=== PATIENT | female | born 1955 | race Caucasian/White ===

== ENCOUNTER 2021-11-06 16:31 | Inpatient (IN) ==
[2021-11-06 18:21] LABS: Basophils # 0.1 K/mcL (0.0-0.2); Basophils % 0.9 %; Eosinophils # 0.2 K/mcL (0.0-0.6); Eosinophils % 1.2 %; Hematocrit 43.5 % (35.3-44.9); Hemoglobin 13.9 g/dL (11.5-15.4); Immature Granulocytes % 0.5 % (0-4); Lymphocytes # 4.5 K/mcL (0.6-4.6); Lymphocytes % 34.7 %; Mean Corpuscular Hemoglobin 28.8 pg (28.0-33.3); Mean Corpuscular Volume 90.2 fL (83.0-100.0); Mean Platelet Volume 10.7 fL (9.4-12.4); Monocytes # 0.9 K/mcL (0.0-1.3); Monocytes % 6.6 %; Neutrophils # 7.2 K/mcL (1.6-8.9); Nucleated Red Blood Cells 0.2 /100 WBC (0); Platelet Count 251 K/mcL (140-400); Red Blood Count 4.82 M/mcL (3.82-4.97); Red Cell Distribution Width 15.8 % (11.5-14.5); Segmented Neutrophils % 56.1 %; White Blood Count 12.9 K/mcL (4.3-11.1)
[2021-11-06 18:36] LABS: INR 1.2; Prothrombin Time 13.4 Seconds (9.4-12.1)
[2021-11-06 18:38] LABS: Activated Partial Thrombo Time 29.7 Seconds (26.0-36.0)
[2021-11-06 18:42] LABS: Alanine Aminotransferase 12 Units/L (7-52); Albumin 3.7 g/dL (3.5-5.7); Alkaline Phosphatase 91 Units/L (34-104); Aspartate Amino Transferase 14 Units/L (13-39); BUN/Creatinine Ratio 17 (6-26); Bilirubin,Indirect 0.5 mg/dL (0.0-1.0); Bilirubin,Total 0.5 mg/dL (0.3-1.0); Blood Urea Nitrogen 16 mg/dL (8-23); Carbon Dioxide 24 mEq/L (23-29); Chloride 107 mEq/L (98-107); Globulin 3.8 g/dL (2.4-3.5); Glucose 124 mg/dL (70-105); Osmolality,Calculated 283 (280-300); Potassium 4.2 mEq/L (3.5-5.1); Sodium 135 mEq/L (136-145); Total Protein 7.5 g/dL (6.4-8.9); Troponin I < 0.03 ng/mL (< 0.04); eGFR For African Americans > 60 (> 60); eGFR For Non-African Americans > 60 (> 60)
[2021-11-06 20:54] LABS: Influenza A PCR Negative (Negative); Influenza B PCR Negative (Negative); Resp. Syncytial Virus PCR Negative (Negative)
[2021-11-06] MEDS ORDERED: Furosemide 40 MG/4 ML VIAL IVP ONE (20:56)
[2021-11-06] MEDS ORDERED: Morphine Sulfate 2 MG/ML SYRINGE IVP ONE (21:08)
[2021-11-06] MEDS ORDERED: Naloxone 0.4 MG/ML INJ IVP PRN (21:10)
[2021-11-06] MEDS ORDERED: Ondansetron ODT 4 MG TAB.RAPDIS SL PRN (21:10)
[2021-11-06] MEDS ORDERED: Melatonin 3 MG TABLET PO PRN (21:10)
[2021-11-06 21:15] LABS: SARS-CoV-2 by PCR (In House) Negative (Negative)
[2021-11-06] MEDS ORDERED: *HR* Dextrose 50 % in Water (Syg) 50 ML SYRINGE IVP PRN (21:58)
[2021-11-06] MEDS ORDERED: D5% in Water 1,000 ML IVC PRN (21:58)
[2021-11-06] MEDS ORDERED: Dextrose 4 GM Chewable Tablets PO PRN ×2 (21:58)
[2021-11-06] MEDS: Insulin LISPRO 300 UNITS/3 ML VIAL SUBQ SCH (23:37)
[2021-11-07 00:27] LABS: Bacteria,Urine Moderate per hpf (None-Few); Bilirubin,Urine Negative (Negative); Blood,Urine Moderate (Negative); Clarity,Urine Turbid (Clear); Color,Urine Colorless (Yellow); Glucose,Urine (UA) Normal (Normal); Ketones,Urine Negative (Negative); Leukocyte Esterase,Urine Large (Negative); Mucus,Urine Few per lpf (None-Few); Nitrite,Urine Negative (Negative); Protein,Urine Negative (Neg-Trace); RBC,Urine TNTC per hpf (0-3); Specific Gravity,Urine 1.009 (1.010-1.025); Squamous Epithelial Cell,Urine Few per hpf (None-Few); Urobilinogen,Urine Normal (Normal); WBC,Urine 30-50 per hpf (0-3)
[2021-11-07] MEDS ORDERED: Ketorolac 30 MG/ML VIAL IVP ONE (01:11)
[2021-11-07 01:23] LABS: BUN/Creatinine Ratio 18 (6-26); Blood Urea Nitrogen 18 mg/dL (8-23); Calcium 9.1 mg/dL (8.6-10.3); Carbon Dioxide 21 mEq/L (23-29); Chloride 105 mEq/L (98-107); Chol/HDL Ratio 2.5 (0-4.9); Cholesterol 136 mg/dL (< 200); Glucose 223 mg/dL (70-105); HDL Cholesterol 55 mg/dL (40-59); LDL Cholesterol,Calculated 59 mg/dL (< 100); Magnesium 1.7 mg/dL (1.6-2.6); Osmolality,Calculated 291 (280-300); Phosphorous 3.9 mg/dL (2.7-4.5); Potassium 3.9 mEq/L (3.5-5.1); Sodium 136 mEq/L (136-145); Triglycerides 111 mg/dL (< 150); eGFR For African Americans > 60 (> 60); eGFR For Non-African Americans 55 (> 60)
[2021-11-07 01:27] LABS: Hemoglobin 14.6 g/dL (11.5-15.4); Mean Corpuscular HGB Conc 31.7 g/dL (31.6-35.5); Mean Corpuscular Hemoglobin 28.3 pg (28.0-33.3); Mean Corpuscular Volume 89.3 fL (83.0-100.0); Mean Platelet Volume 11.2 fL (9.4-12.4); Platelet Count 259 K/mcL (140-400); Red Blood Count 5.15 M/mcL (3.82-4.97); Red Cell Distribution Width 16.1 % (11.5-14.5); White Blood Count 15.5 K/mcL (4.3-11.1)
[2021-11-07 01:35] LABS: Thyroid Stimulating Hormone 8.704 mcIU/mL (0.340-5.600)
[2021-11-07 02:41] LABS: Estimated Average Glucose 171 mg/dl; Hemoglobin A1C 7.6 %
[2021-11-07] MEDS: Insulin LISPRO 300 UNITS/3 ML VIAL SUBQ SCH ×4 (05:54→23:00)
[2021-11-07 08:48] LABS: Triiodothyronine (T3) Total 112 ng/dL (87-178)
[2021-11-07] MEDS ORDERED: Furosemide 40 MG/4 ML VIAL IVP SCH (09:00)
[2021-11-07] MEDS: carvediloL 25 MG TABLET PO SCH ×2 (10:02→19:37)
[2021-11-07] MEDS: Loratadine 10 MG TABLET PO SCH (10:02)
[2021-11-07] MEDS: cefTRIAXone 1,000 MG in 0.9 % Sodium Chloride 10 ML IVP SCH (10:02)
[2021-11-07] MEDS: Isosorbide MONOnitrate (24 HR) 60 MG TAB.ER.24H PO SCH (10:03)
[2021-11-07] MEDS: Topiramate 100 MG TABLET PO SCH ×2 (10:03→19:37)
[2021-11-07] MEDS: Furosemide 40 MG/4 ML VIAL IVP SCH ×2 (11:07→19:38)
[2021-11-07] MEDS ORDERED: *HR* Rivaroxaban 10 MG TABLET PO SCH (17:00)
[2021-11-07] MEDS ORDERED: Morphine Sulfate 2 MG/ML SYRINGE IVP PRN (19:08)
[2021-11-08] MEDS: Insulin LISPRO 300 UNITS/3 ML VIAL SUBQ SCH ×3 (05:06→17:45)
[2021-11-08 05:38] LABS: Basophils # 0.1 K/mcL (0.0-0.2); Basophils % 0.9 %; Eosinophils # 0.2 K/mcL (0.0-0.6); Eosinophils % 1.7 %; Hematocrit 40.6 % (35.3-44.9); Immature Granulocytes % 0.3 % (0-4); Lymphocytes % 34.7 %; Mean Corpuscular Hemoglobin 28.9 pg (28.0-33.3); Mean Corpuscular Volume 90.2 fL (83.0-100.0); Mean Platelet Volume 11.3 fL (9.4-12.4); Monocytes # 1.2 K/mcL (0.0-1.3); Neutrophils # 6.1 K/mcL (1.6-8.9); Nucleated Red Blood Cells 0.3 /100 WBC (0); Platelet Count 208 K/mcL (140-400); Red Cell Distribution Width 15.9 % (11.5-14.5); Segmented Neutrophils % 52.4 %; White Blood Count 11.6 K/mcL (4.3-11.1)
[2021-11-08 05:52] LABS: BUN/Creatinine Ratio 21 (6-26); Blood Urea Nitrogen 18 mg/dL (8-23); Calcium 8.8 mg/dL (8.6-10.3); Carbon Dioxide 25 mEq/L (23-29); Chloride 105 mEq/L (98-107); Glucose 114 mg/dL (70-105); Osmolality,Calculated 287 (280-300); Potassium 3.8 mEq/L (3.5-5.1); Sodium 137 mEq/L (136-145); eGFR For African Americans > 60 (> 60); eGFR For Non-African Americans > 60 (> 60)
[2021-11-08 05:56] LABS: INR 2.2
[2021-11-08 05:57] LABS: Activated Partial Thrombo Time 38.1 Seconds (26.0-36.0)
[2021-11-08] MEDS: Isosorbide MONOnitrate (24 HR) 60 MG TAB.ER.24H PO SCH (08:08)
[2021-11-08] MEDS: Furosemide 40 MG/4 ML VIAL IVP SCH ×2 (08:09→21:28)
[2021-11-08] MEDS: Loratadine 10 MG TABLET PO SCH (08:09)
[2021-11-08] MEDS: Topiramate 100 MG TABLET PO SCH ×2 (08:09→21:26)
[2021-11-08] MEDS: cefTRIAXone 1,000 MG in 0.9 % Sodium Chloride 10 ML IVP SCH (08:09)
[2021-11-08] MEDS: carvediloL 25 MG TABLET PO SCH ×2 (08:09→21:26)
[2021-11-08] MEDS ORDERED: *HR* Heparin 5,000 UNIT/ML VIAL IVP PRN ×2 (11:21)
[2021-11-08] MEDS ORDERED: *HR* Heparin 5,000 UNIT/ML VIAL IVP ONE (11:21)
[2021-11-08] MEDS: Heparin 25,000UNIT/250ML 1/2NS 25,000 UNIT/250 ML IV.SOLN IVC SCH (12:27)
[2021-11-08 13:37] LABS: INR 1.6; Prothrombin Time 17.3 Seconds (9.4-12.1)
[2021-11-08] MEDS: hydrOXYzine pamoate 25 MG CAPSULE PO SCH (21:26)
[2021-11-09] MEDS: Insulin LISPRO 300 UNITS/3 ML VIAL SUBQ SCH ×6 (00:07→20:42)
[2021-11-09 01:29] LABS: Hematocrit 40.3 % (35.3-44.9); Hemoglobin 12.9 g/dL (11.5-15.4); Mean Corpuscular Hemoglobin 29.2 pg (28.0-33.3); Mean Corpuscular Volume 91.2 fL (83.0-100.0); Mean Platelet Volume 10.5 fL (9.4-12.4); Platelet Count 187 K/mcL (140-400); Red Blood Count 4.42 M/mcL (3.82-4.97); Red Cell Distribution Width 16.2 % (11.5-14.5); White Blood Count 10.6 K/mcL (4.3-11.1)
[2021-11-09 01:46] LABS: BUN/Creatinine Ratio 21 (6-26); Blood Urea Nitrogen 18 mg/dL (8-23); Calcium 8.4 mg/dL (8.6-10.3); Carbon Dioxide 22 mEq/L (23-29); Chloride 106 mEq/L (98-107); Glucose 259 mg/dL (70-105); Magnesium 1.8 mg/dL (1.6-2.6); Osmolality,Calculated 289 (280-300); Potassium 3.7 mEq/L (3.5-5.1); Sodium 134 mEq/L (136-145); eGFR For African Americans > 60 (> 60); eGFR For Non-African Americans > 60 (> 60)
[2021-11-09] MEDS: Cefdinir 300 MG CAPSULE PO SCH ×2 (08:26→20:40)
[2021-11-09] MEDS: Loratadine 10 MG TABLET PO SCH (08:26)
[2021-11-09] MEDS: carvediloL 25 MG TABLET PO SCH ×2 (08:27→20:41)
[2021-11-09] MEDS: Isosorbide MONOnitrate (24 HR) 60 MG TAB.ER.24H PO SCH (08:27)
[2021-11-09] MEDS: Topiramate 100 MG TABLET PO SCH ×2 (08:27→20:41)
[2021-11-09] MEDS: Furosemide 40 MG/4 ML VIAL IVP SCH ×2 (08:27→20:40)
[2021-11-09] MEDS: Heparin 25,000UNIT/250ML 1/2NS 25,000 UNIT/250 ML IV.SOLN IVC SCH (12:24)
[2021-11-09] MEDS: Ranolazine 500 MG TAB.ER.12H PO SCH (20:41)
[2021-11-09] MEDS: hydrOXYzine pamoate 25 MG CAPSULE PO SCH (20:41)
[2021-11-09] MEDS ORDERED: Insulin DETEMIR 100 UNIT/ML X5UNITS SUBQ SCH (21:00)
[2021-11-10 01:12] LABS: Hematocrit 40.2 % (35.3-44.9); Hemoglobin 12.9 g/dL (11.5-15.4)
[2021-11-10 01:29] LABS: BUN/Creatinine Ratio 17 (6-26); Blood Urea Nitrogen 16 mg/dL (8-23); Calcium 8.3 mg/dL (8.6-10.3); Carbon Dioxide 24 mEq/L (23-29); Chloride 104 mEq/L (98-107); Glucose 258 mg/dL (70-105); Magnesium 1.7 mg/dL (1.6-2.6); Osmolality,Calculated 288 (280-300); Phosphorous 2.8 mg/dL (2.7-4.5); Potassium 3.3 mEq/L (3.5-5.1); Sodium 134 mEq/L (136-145); eGFR For African Americans > 60 (> 60); eGFR For Non-African Americans 59 (> 60)
[2021-11-10] MEDS: Insulin DETEMIR 100 UNIT/ML X5UNITS SUBQ SCH ×2 (08:56→20:34)
[2021-11-10] MEDS: Insulin LISPRO 300 UNITS/3 ML VIAL SUBQ SCH ×4 (08:57→20:35)
[2021-11-10] MEDS: carvediloL 25 MG TABLET PO SCH ×2 (09:03→20:36)
[2021-11-10] MEDS: Cefdinir 300 MG CAPSULE PO SCH ×2 (09:03→20:35)
[2021-11-10] MEDS: Loratadine 10 MG TABLET PO SCH (09:04)
[2021-11-10] MEDS: Topiramate 100 MG TABLET PO SCH ×2 (09:04→20:36)
[2021-11-10] MEDS: Ranolazine 500 MG TAB.ER.12H PO SCH ×2 (09:04→20:36)
[2021-11-10] MEDS: Isosorbide MONOnitrate (24 HR) 60 MG TAB.ER.24H PO SCH (09:04)
[2021-11-10] MEDS: Furosemide 40 MG/4 ML VIAL IVP SCH ×2 (09:09→20:37)
[2021-11-10] MEDS: Heparin 25,000UNIT/250ML 1/2NS 25,000 UNIT/250 ML IV.SOLN IVC SCH (12:10)
[2021-11-10] MEDS: hydrOXYzine pamoate 25 MG CAPSULE PO SCH (20:37)
[2021-11-11 03:42] LABS: Basophils # 0.1 K/mcL (0.0-0.2); Basophils % 0.8 %; Eosinophils # 0.3 K/mcL (0.0-0.6); Eosinophils % 2.2 %; Hematocrit 40.8 % (35.3-44.9); Hemoglobin 13.3 g/dL (11.5-15.4); Immature Granulocytes % 0.5 % (0-4); Lymphocytes # 5.5 K/mcL (0.6-4.6); Lymphocytes % 42.3 %; Mean Corpuscular HGB Conc 32.6 g/dL (31.6-35.5); Mean Corpuscular Volume 89.1 fL (83.0-100.0); Monocytes # 1.3 K/mcL (0.0-1.3); Monocytes % 10.2 %; Platelet Count 179 K/mcL (140-400); Red Blood Count 4.58 M/mcL (3.82-4.97); Red Cell Distribution Width 15.8 % (11.5-14.5); White Blood Count 13.1 K/mcL (4.3-11.1)
[2021-11-11 03:43] LABS: BUN/Creatinine Ratio 20 (6-26); Blood Urea Nitrogen 18 mg/dL (8-23); Carbon Dioxide 25 mEq/L (23-29); Chloride 102 mEq/L (98-107); Glucose 154 mg/dL (70-105); Osmolality,Calculated 283 (280-300); Potassium 3.9 mEq/L (3.5-5.1); Sodium 134 mEq/L (136-145); eGFR For African Americans > 60 (> 60); eGFR For Non-African Americans > 60 (> 60)
[2021-11-11 03:45] LABS: Magnesium 1.9 mg/dL (1.6-2.6); Phosphorous 3.2 mg/dL (2.7-4.5)
[2021-11-11 05:04] LABS: Neutrophils # 5.8 K/mcL (1.6-8.9)
[2021-11-11 05:05] LABS: Platelet Estimate Normal (Normal); Reactive Lymphocytes Present (Not Present)
[2021-11-11] MEDS ORDERED: 0.9 % Sodium Chloride 1,000 ML ONE ×2 (06:31→06:37)
[2021-11-11] MEDS ORDERED: Nitroglycerin 1,000 MCG/5 ML VIAL IV ONE (06:32)
[2021-11-11] MEDS ORDERED: Heparin 1,000 UNITS/500 mL 500 ML ONE (06:32)
[2021-11-11] MEDS ORDERED: ISOVUE-370 200 ML INFUS..BTL ONE (06:32)
[2021-11-11] MEDS ORDERED: *HR* Heparin 10,000 UNIT/10 ML VIAL ONE (06:32)
[2021-11-11] MEDS ORDERED: *HR* FentaNYL (PF) 100 MCG/2 ML VIAL ONE (06:37)
[2021-11-11] MEDS ORDERED: *HR* Midazolam HCl 2 MG/2 ML VIAL ONE (06:37)
[2021-11-11] MEDS ORDERED: methylPREDNISolone 125 MG/2 ML VIAL ONE (07:05)
[2021-11-11] MEDS: Insulin LISPRO 300 UNITS/3 ML VIAL SUBQ SCH ×3 (07:52→16:41)
[2021-11-11] MEDS: Isosorbide MONOnitrate (24 HR) 60 MG TAB.ER.24H PO SCH (10:02)
[2021-11-11] MEDS: Cefdinir 300 MG CAPSULE PO SCH (10:03)
[2021-11-11] MEDS: Loratadine 10 MG TABLET PO SCH (10:03)
[2021-11-11] MEDS: carvediloL 25 MG TABLET PO SCH (10:03)
[2021-11-11] MEDS: Ranolazine 500 MG TAB.ER.12H PO SCH (10:03)
[2021-11-11] MEDS: Furosemide 40 MG/4 ML VIAL IVP SCH (10:03)
[2021-11-11] MEDS: Topiramate 100 MG TABLET PO SCH (10:03)
[2021-11-11] MEDS: Insulin DETEMIR 100 UNIT/ML X5UNITS SUBQ SCH (10:04)
[2021-11-11 11:31] VITALS: BP 135/84; PULSE 80; TEMP 98; O2SAT 92
[2021-11-11] MEDS ORDERED: *HR* Rivaroxaban 10 MG TABLET PO SCH (17:00)
== END 2021-11-11 16:45 | disposition home or self-care (01) | DRG 192 ==
LOC: EMEROOARM 16:31 → 3BNU 16:31 → SUATTDRO 21:11 → 3BNU 21:17 → SUATTDRO 11-08 11:39
PROVIDERS: ADMIT Internal Medicine; ATTEND Internal Medicine